=== PATIENT | female | born 1970 | race Caucasian/White ===

== ENCOUNTER → 2017-03-02 | Outpatient (CLI) | payer BC, SELFPAY | PROVIDERS: Visit Provider Obstetrics & Gynecology | DX: Z12.31 Encounter for screening mammogram for malignant neoplasm of breast (principal) | CPT/HCPCS: 77067; G0202 ==

== ENCOUNTER → 2018-03-14 16:01 | Outpatient (CLI) | payer BC, SELFPAY ==
--- NOTE | 2018-03-14 16:05 | MM_ITS ---
MM Dig SC mamm implant BI CAD ORDERING PHYSICIAN : Carl Lugo PATIENT AGE: 47 years GENDER: Female COMPARISON: Previous mammogram 03/02/2017 & August 2015 post studies with with implants.. INDICATION: Screening mammogram. no hormones./IUD. Bilateral breast implants Family history. Maternal grandmother with breast cancer TECHNIQUE: María technique utilized. CC & MLO images were obtained of the breast tissue overlying implant, as well as a second set of images including the breast implant. Mammography is inherently limited due to the implants is a could obscure areas of breast R2 CAD reviewed. . FINDINGS: . Moderate breast tissue overlies grossly intact appearing implants bilaterally. No significant new areas of concern. In either breast. No new findings. Bilateral follow-up in one recommended. . IMPRESSION: Stable bilateral mammogram. No new areas of concern. Bilateral breast implants again noted with stable appearance to the overlying breast tissue. Follow-up in one year recommended BI-RADS Category: 1 Negative RECOMMENDED FOLLOW-UP: 1YR 1 YEAR FOLLOW-UP (A letter has been sent to the patient regarding results of the study.)
== END ==
PROVIDERS: PCP Family Medicine; Visit Provider Obstetrics & Gynecology
DX: Z12.31 Encounter for screening mammogram for malignant neoplasm of breast (principal)
CPT/HCPCS: 77067

== ENCOUNTER → 2018-06-27 13:49 | Outpatient (POV) | payer BC, SELFPAY | PROVIDERS: Visit Provider Dermatology | DX: Z00.00 Encounter for general adult medical examination without abnormal findings (principal) ==

== ENCOUNTER → 2019-04-12 13:01 | Outpatient (CLI) | payer BC, SELFPAY ==
--- NOTE | 2019-04-12 13:12 | XR_ITS ---
PROCEDURE: XR WRIST RT MIN 3V CLINICAL INDICATION: RT WRIST PAIN COMPARISON: No exams were available for comparison FINDINGS: No fracture, dislocation, lytic change, or blastic change evident. No significant degenerative change IMPRESSION: Negative right wrist Dictated by: Elie Blevins MD 04/12/2019 15:25 Electronically signed by Elie Blevins MD in [place] 04/12/2019 15:25
== END ==
PROVIDERS: PCP Nurse Practitioner Family; Visit Provider Nurse Practitioner Family
DX: M25.531 Pain in right wrist (principal)
CPT/HCPCS: 73110

== ENCOUNTER → 2019-04-25 15:45 | Outpatient (CLI) | payer BC, SELFPAY ==
--- NOTE | 2019-04-25 15:49 | MM_ITS ---
PROCEDURE: MM DIG SC MAMM IMPLANT BI CAD CLINICAL INDICATION: SCREENING There is a history of breast cancer in the patient's maternal grandmother. Patient has bilateral breast implants. COMPARISON: [facility] DIG MAMM-SCREEN IMPLANT from 08/29/2015 [facility] DIG MAMM-SCREEN IMPLANT W/CAD from 03/02/2017 [facility] MM Dig SC mamm implant BI CAD from 03/14/2018 TECHNIQUE: Standard CC and MLO images and 3D Tomosynthesis was obtained. R2 CAD reviewed. Additional Emile views were performed as well. FINDINGS: Moderate heterogenic fibroglandular densities are seen in the [place] breast tissue surrounding the breast implants. Both implants appear intact with no evidence of leakage. Joseph images were reviewed showing no suspicious abnormality of the [place] breast tissue. Or there are no suspicious microcalcifications. There are couple of benign-appearing microcalcifications just deep to the nipple left breast. IMPRESSION: Stable exam with no suspicious lesions seen BI-RAD Category: 2 Benign Finding(s) FOLLOW-UP: 1YR 1 Year Follow-up (A letter has been sent to the patient regarding results of the study.) Dictated by: Dr. Prabhakar Quigley MD 04/26/2019 08:[address] Prabhakar Quigley MD in [place] 04/26/2019 08:59
== END ==
PROVIDERS: PCP Nurse Practitioner Family; Visit Provider Student in an Organized Health Care Education/Training Program
DX: Z12.31 Encounter for screening mammogram for malignant neoplasm of breast (principal)
CPT/HCPCS: 77063; 77067

== ENCOUNTER → 2020-02-19 14:20 | Outpatient (POV) | payer BC, SELFPAY | PROVIDERS: Visit Provider Dermatology | DX: Z00.00 Encounter for general adult medical examination without abnormal findings (principal) ==

== ENCOUNTER → 2020-04-10 17:49 | Outpatient (CLI) | payer BC, SELFPAY | PROVIDERS: PCP Physician Assistant; Visit Provider Physician Assistant | DX: Z20.822 Contact with and (suspected) exposure to COVID-19 (principal) | CPT/HCPCS: U0003 ==

== ENCOUNTER → 2020-09-25 07:57 | Outpatient (CLI) | payer BC, SELFPAY ==
--- NOTE | 2020-09-25 08:00 | MM_ITS ---
PROCEDURE: MM DIG MAMM DX BI IMPLANT CAD Digital Breast Tomosynthesis Included CLINICAL INDICATION: SCREENING COMPARISON: MG DMSI DIG MAMM-SCREEN IMPLANT W/CAD from 03/02/2017 MG [facility] MM Dig SC mamm implant BI CAD from 03/14/2018 MG MM DIG SC MAMM IMPLANT BI CAD from 04/25/2019 TECHNIQUE: Standard CC and MLO, implant displaced images and 3D Tomosynthesis was obtained. R2 CAD reviewed. FINDINGS: The breasts are heterogeneously dense, may obscure small masses. Bilateral breast implants are noted. No dominant mass lesion, suspicious calcification or architectural distortion is noted. Benign appearing calcifications in the left breast. IMPRESSION: Benign findings. BI-RAD Category: 2 Benign Finding FOLLOW-UP: 1 YR 1 Year Follow-up (A letter has been sent to the patient regarding results of the study.) Dictated by: May Holt 09/26/2020 08:59 May Holt in [place] 09/26/2020 08:59
== END ==
PROVIDERS: PCP Physician Assistant; Visit Provider Obstetrics & Gynecology
DX: Z12.31 Encounter for screening mammogram for malignant neoplasm of breast (principal); Z98.82 Breast implant status
CPT/HCPCS: 77062; 77063; 77066; 77067; G0279

== ENCOUNTER → 2020-12-16 08:24 | Outpatient (CLI) | payer BC, SELFPAY | PROVIDERS: Visit Provider Nurse Practitioner | DX: Z20.822 Contact with and (suspected) exposure to COVID-19 (principal) | CPT/HCPCS: C9803; U0003; U0005 ==

== ENCOUNTER → 2021-03-03 13:37 | Outpatient (CLI) | payer BC, SELFPAY | PROVIDERS: PCP Family Medicine; Visit Provider Nurse Practitioner | DX: U07.1 COVID-19 (principal) | CPT/HCPCS: C9803; U0003; U0005 ==

== ENCOUNTER → 2021-08-25 09:57 | Outpatient (POV) | payer BC, SELFPAY | PROVIDERS: Visit Provider Dermatology | DX: Z00.00 Encounter for general adult medical examination without abnormal findings (principal) ==

== ENCOUNTER → 2021-10-14 15:35 | Outpatient (CLI) | payer BC, SELFPAY ==
--- NOTE | 2021-10-14 15:40 | MM_ITS ---
PROCEDURE INFORMATION: Exam: MG Bilateral Screening 3D Mammography Exam date and time: 10/14/2021 3:47 PM Age: 51 years old Clinical indication: Screening examination TECHNIQUE: Imaging protocol: Bilateral Screening tomosynthesis and 2D mammography including computer-aided detection (CAD) when performed. COMPARISON: 1. MG MM DIG MAMM DX BI IMPLANT CAD 09/25/2020 8:03 AM 2. MG MM DIG SC MAMM IMPLANT BI CAD 04/25/2019 4:04 PM FINDINGS: MAMMOGRAPHY: Breast composition: The breasts are heterogeneously dense, which may obscure small masses. Mass: None. Architectural distortion: None. Calcifications: No suspicious calcifications. Asymmetric density: None. Skin thickening: None. Axillary adenopathy: None. Implants: Subpectoral saline breast implants are present. IMPRESSION: No mammographic evidence of malignancy. Annual screening is recommended unless otherwise clinically indicated. ASSESSMENT: BI-RADS Category 1: Negative
== END ==
PROVIDERS: PCP Family Medicine; Visit Provider Family Medicine
DX: Z12.31 Encounter for screening mammogram for malignant neoplasm of breast (principal)
CPT/HCPCS: 77063; 77067

== ENCOUNTER 2022-02-15 10:51 | Emergency (ER) | payer BC, SELFPAY ==
--- NOTE | 2022-02-15 13:03 | EXP.UTC ---
Discharge Plan Disposition Patient Disposition: Home, Self-Care Condition: Good Prescriptions Prescriptions: New azithromycin [Zithromax] 250 mg tablet 250 mg PO UD DOSE PK Qty: 6 0RF Rx Instructions: Take two (2) tablets today, then one (1) tablet days #2 thru #5 benzonatate [benzonatate] 100 mg capsule 100 mg PO TIDP PRN (Reason: Cough) Qty: 30 0RF methylprednisolone 4 mg Tablets,Dose Pack 4 mg PO DIRECTED Qty: 21 0RF Referrals Follow up/Referrals: Manuelito Barroso MD [Primary Care Provider] - See instructions Activity Restrictions/Add. Instructions Additional Instructions/Restrictions: Drink plenty of fluids. Take tylenol or ibuprofen for pain or fever. Take the medications as directed. Follow up with your regular doctor. GO TO THE ER FOR ANY WORSENING SYMPTOMS Clinical Impressions Clinical Impression: Acute viral syndrome Discharge ED Provider[place] Yuriy Farr [facility] General Stated complaint: upper resp,headache Time Seen by Provider: 02/15/22 13:03 History of Present Illness Provider Complaint: She states that for the past 1 day she has had fever, chills, sore throat, and malaise. Related Data Previous Rx's Medication Instructions Recorded azithromycin 250 mg tablet 250 mg PO UD DOSE PK #6 tabs 02/15/22 (Zithromax) benzonatate 100 mg capsule 100 mg PO TIDP PRN Cough #30 caps 02/15/22 methylprednisolone 4 mg tablets in 4 mg PO DIRECTED #21 tabs 02/15/22 a dose pack Allergies Allergy/AdvReac Type Severity Reaction Status Date / Time Sulfa (Sulfonamide Allergy Verified 02/15/22 13:39 Antibiotics) [facility] Disclaimer: The information contained in this section may have been updated after the patient was seen, as this information can be updated by other users. Social History Smoking Status: Never smoker alcohol intake: never current occupational status: employed Travel in the last 8 weeks: None ROS Obtained: Yes All systems reviewed & no additional complaints except as documented Constitutional Constitutional: Reports chills and Reports fever(s) Eyes Eyes: Denies eye discharge ENT Ears, Nose, Mouth, and Throat: Reports as per HPI Cardiovascular Cardiovascular: Denies chest pain Respiratory Respiratory: Denies chest congestion and Reports cough Gastrointestinal Gastrointestingal: Reports nausea; Denies abdominal pain, constipation, cramping, diarrhea or vomiting Musculoskeletal Musculoskeletal: Denies arthralgias Integumentary/Breasts Skin/Breast: Denies rash Neurologic Neurologic: Denies paresthesias Physical Exam General General appearance: alert and in no apparent distress Head Head exam: atraumatic, normocephalic and normal inspection Eye Eye exam: Present normal appearance, PERRL and EOMI ENT ENT exam: Present mucous membranes moist and normal external ear exam Expanded ENT Exam TM/Canal exam: Bilateral TM: erythema and bulging Nose exam: Absent sinus tenderness Mouth exam: Present normal external inspection; Absent drooling Teeth exam: Present normal inspection Throat exam: Present tonsillar erythema, tonsillomegaly and tonsillar exudate Neck Neck exam: Present normal inspection, full ROM and trachea midline; Absent tenderness, meningismus or lymphadenopathy Chest Chest inspection: Present normal inspection and symmetric chest wall rise; Absent tenderness Respiratory Respiratory exam: Present normal lung sounds bilaterally; Absent respiratory distress, wheezes or stridor Cardiovascular Cardiovascular exam: Present regular rate and normal rhythm; Absent systolic murmur or diastolic murmur Abdominal Exam Abdominal exam: Present soft and normal bowel sounds; Absent distention, tenderness, guarding, rebound or rigidity Extremities Exam Extremities exam: Present normal inspection and normal capillary refill; Absent calf tenderness Back Exam Back exam: Present normal i
[2022-02-15 13:12] LABS: Coronavirus 19, PCR Not Detected (NotDetected); Influenza A, PCR Not Detected (NotDetected); Influenza B, PCR Not Detected (NotDetected)
[2022-02-15 13:18] LABS: UTC Strep Screen (Rapid) Negative (Negative)
[2022-02-15 13:34] VITALS: BP 166/102; PULSE 60; RESP 16; TEMP 36.9; O2SAT 97; BMI 26.5
[2022-02-15 13:47] VITALS: BP 166/102; PULSE 60; RESP 16; TEMP 36.9
== END 2022-02-15 13:50 | disposition home or self-care (01) ==
PROVIDERS: Emergency Provider Nurse Practitioner Family; PCP Family Medicine
DX: R51.9 Headache, unspecified (principal); B34.9 Viral infection, unspecified
CPT/HCPCS: 87880; 99212; C9803; G0463; U0003; U0005

== ENCOUNTER → 2022-08-17 08:42 | Outpatient (POV) | payer BC, SELFPAY | PROVIDERS: Visit Provider Dermatology | DX: Z00.00 Encounter for general adult medical examination without abnormal findings (principal) ==

== ENCOUNTER → 2022-09-08 14:37 | Outpatient (CLI) | payer BC, SELFPAY ==
--- NOTE | 2022-09-08 14:49 | US_ITS ---
PROCEDURE INFORMATION: Exam: US Left Non-Vascular Joint or Other Extremity Structure Exam date and time: 09/08/2022 3:05 PM Age: 52 years old Clinical indication: Lymphadenopathy is localized; Arm, upper; Left; Additional info: Axillary lymphadenopathy TECHNIQUE: Imaging protocol: Left US joint or other nonvascular extremity structure or structures. Real-time ultrasound with image documentation. Limited study. Exam focused on the upper extremity in the region of clinical interest. Total images: 14 COMPARISON: No relevant prior studies available. FINDINGS: Soft tissues: Unremarkable. No loculated collections. Lymph nodes: Multiple left axillary lymph nodes are present measuring up to 1.3 cm. No other areas of lymphadenopathy or masses. IMPRESSION: 1. Multiple left axillary lymph nodes are present measuring up to 1.3 cm. 2. No other areas of lymphadenopathy or masses.
== END ==
PROVIDERS: PCP Family Medicine; Visit Provider Physician Assistant
DX: R59.0 Localized enlarged lymph nodes (principal)
CPT/HCPCS: 76882

== ENCOUNTER → 2022-12-06 15:51 | Outpatient (CLI) | payer BC, SELFPAY ==
--- NOTE | 2022-12-06 15:55 | MM_ITS ---
PROCEDURE INFORMATION: Exam: MG Bilateral Screening 3D Mammography Exam date and time: 12/06/2022 3:47 PM Age: 52 years old Clinical indication: Screening mammogram. Family history of breast cancer in grandmother TECHNIQUE: Imaging protocol: Bilateral Screening tomosynthesis and 2D mammography including computer-aided detection (CAD) when performed. COMPARISON: 1. MG MM DIG SC MAMM IMPLANT BI CAD 10/14/2021 3:47 PM 2. MG MM DIG MAMM DX BI IMPLANT CAD 09/25/2020 8:03 AM 3. MG MM DIG SC MAMM IMPLANT BI CAD 04/25/2019 4:04 PM 4. MG [facility] MM Dig SC mamm implant BI CAD 03/14/2018 4:21 PM FINDINGS: MAMMOGRAPHY: Breast composition: The breast is heterogeneously dense, which may obscure small masses. Mass: None. Architectural distortion: No new or suspicious architectural distortion. Calcifications: No new or suspicious calcifications are present Asymmetric density: No new or suspicious asymmetric density is present Skin thickening: None. Axillary adenopathy: None. Implants: Subpectoral saline augmentation implants are present. IMPRESSION: No mammographic evidence of malignancy. Recommend annual screening mammography unless otherwise clinically indicated. ASSESSMENT: BI-RADS category 2: Benign
== END ==
PROVIDERS: PCP Family Medicine; Visit Provider Family Medicine
DX: Z12.31 Encounter for screening mammogram for malignant neoplasm of breast (principal)
CPT/HCPCS: 77063; 77067

== ENCOUNTER 2023-02-16 07:59 | Emergency (ER) | payer BC, SELFPAY ==
[2023-02-16 08:10] VITALS: BP 148/90; PULSE 88; RESP 19; TEMP 37.6; O2SAT 98; BMI 24.7
[2023-02-16 08:35] LABS: UTC Influenza A Antigen Negative (Negative)
[2023-02-16 08:36] LABS: UTC Influenza B Antigen Negative (Negative)
--- NOTE | 2023-02-16 08:41 | EXP.UTC ---
Discharge Plan Disposition Patient Disposition: Home, Self-Care Condition: Good Prescriptions Prescriptions: New prednisone [prednisone] 20 mg tablet 20 mg PO BID Qty: 10 0RF No Action propranolol 20 mg tablet 20 mg PO BID Patient Comments: TAKE ONE TABLET BY MOUTH TWICE DAILY Referrals Follow up/Referrals: Manuelito Barroso MD [Primary Care Provider] - See instructions Activity Restrictions/Add. Instructions Additional Instructions/Restrictions: No sign of a bacterial infection. Likely viral. Viruses can take 7-14 days to run their course. Nasal saline and bulb syringe or nose Trupti to remove nasal drainage to help with nasal congestion. Hard to eat, drink, sleep with nasal congestion so important to keep this cleaned out. Monitor temp. Tylenol or Motrin as needed for pain or fever Encourage fluids, water, Gatorade, Powerade, Pedialyte if infant/toddler/child Warm salt water gargles Warm fluids Sore throat lozenges Sleep elevated Humidifier/vaporizer Follow-up immediately for new or worsening symptoms or no noticeable improvement over the next 48-72 hours. Clinical Impressions Clinical Impression: Upper respiratory disease Instructions Patient Instructions: DI for Viral Upper Respiratory Infection -- Adult Discharge ED Provider: Tayo ([facility] [place] HPI General Stated complaint: cough,sore throat,headache Mode of Arrival: Ambulatory Source of Information: Patient Limitations: No Limitations Time Seen by Provider: 02/16/23 08:41 Description of Symptoms (Recalled from Triage Doc. by RN): cough, loss of voice, fever, chills, body aches, and congestion HEENT Symptoms (Recalled from RN notes): Yes Resp Symptoms (Recalled from RN notes): No Skin Symptoms (Recalled from RN notes): No MS Symptoms (Recalled from RN notes): No Functional Status (Recalled from RN notes): n/a History of Present Illness Provider Complaint: 52 yr old female presents for cough, loss of voice, fever, chills, body aches, and congestion Related Data Home Medications Medication Instructions Recorded Confirmed propranolol 20 mg tablet 20 mg PO BID 02/16/23 02/16/23 Previous Rx's Medication Instructions Recorded prednisone 20 mg tablet 20 mg PO BID #10 tabs 02/16/23 Allergies Allergy/AdvReac Type Severity Reaction Status Date / Time Sulfa (Sulfonamide Allergy Verified 02/16/23 08:20 Antibiotics) Worker's Comp Is this a Worker's Comp case?: No [facility] Disclaimer: The information contained in this section may have been updated after the patient was seen, as this information can be updated by other users. Social History , [employer]LL TABLE [employer]) Smoking Status: Never smoker alcohol intake: never current occupational status: employed Travel in the last 8 weeks: None ROS Obtained: Yes All systems reviewed & no additional complaints except as documented Constitutional Constitutional: Reports system reviewed and no additional complaints, except as documented, Reports as per HPI and Reports headache(s) Eyes Eyes: Reports system reviewed and no additional complaints, except as documented ENT Ears, Nose, Mouth, and Throat: Reports system reviewed and no additional complaints, except as documented, Reports as per HPI, Reports headache(s), Reports hoarseness, Reports nasal congestion, Reports nasal discharge, Reports post nasal drip, Reports sinus pain, Reports sinus pressure, Reports sore throat and Reports throat swelling Cardiovascular Cardiovascular: Reports system reviewed and no additional complaints, except as documented Respiratory Respiratory: Reports system reviewed and no additional complaints, except as documented, Reports as per HPI and Reports cough Gastrointestinal Gastrointestingal: Reports system reviewed and no additional complaints, except as documented Neurologic Neurologic: Reports system reviewed and no additional complaints, exce
[2023-02-16 08:53] VITALS: BP 148/90; PULSE 88; RESP 18; TEMP 37.6; O2SAT 98
[2023-02-16 08:53] LABS: Adenovirus,PCR Not Detected (NotDetected); Coronavirus 229E Not Detected (NotDetected); Coronavirus NL63 Not Detected (NotDetected); Coronavirus OC43 Not Detected (NotDetected); Coronovirus HKU1,PCR Not Detected (NotDetected); Human Metapneumovirus Not Detected (NotDetected); Influenza A, PCR Not Detected (NotDetected); Influenza AH1, 2009 Not Detected (NotDetected); Influenza AH1, PCR Not Detected (NotDetected); Influenza AH3,PCR Not Detected (NotDetected); Influenza B, PCR Not Detected (NotDetected); Parainfluenza 1, PCR Not Detected (NotDetected); Parainfluenza 2, PCR Not Detected (NotDetected); Parainfluenza 3, PCR Not Detected (NotDetected); Parainfluenza 4, PCR Not Detected (NotDetected); Respiratory Syncytial Virus Not Detected (NotDetected); Rhinovirus/Enterovirus Not Detected (NotDetected)
[2023-02-16 11:10] LABS: Coronavirus 19, PCR Detected (NotDetected)
== END 2023-02-16 08:53 | disposition home or self-care (01) ==
PROVIDERS: Emergency Provider Nurse Practitioner Family; PCP Family Medicine
DX: U07.1 COVID-19 (principal); R51.9 Headache, unspecified; R07.0 Pain in throat; R05.9 Cough, unspecified; R50.9 Fever, unspecified; R09.81 Nasal congestion; M79.18 Myalgia, other site; J04.0 Acute laryngitis
CPT/HCPCS: 87632; 87635; 87804; 99212; 99214; G0463

== ENCOUNTER 2023-07-11 15:47 | Emergency (ER) | payer BC, SELFPAY ==
[2023-07-11 16:10] VITALS: BP 176/82; PULSE 64; RESP 20; TEMP 36.9; O2SAT 99; BMI 26.8
--- NOTE | 2023-07-11 16:39 | EXP.UTC ---
Discharge Plan Disposition Patient Disposition: Home, Self-Care Condition: Good Prescriptions Prescriptions: New amoxicillin-pot clavulanate 875-125 mg Tablet 1 tab PO Q12H Qty: 20 0RF methylprednisolone [Medrol (Taco)] 4 mg tablets,dose pack See Rx Instructions .Route .COMPLEX 6 Days Qty: 21 0RF Rx Instructions: taper pack; guaifenesin [Mucinex] 600 mg tablet extended release 12hr 1,200 mg PO BID PRN (Reason: cough) Qty: 20 0RF No Action propranolol 20 mg tablet 20 mg PO BID Patient Comments: TAKE ONE TABLET BY MOUTH TWICE DAILY Nurtec ODT 75 mg tablet,disintegrating 75 mg PO DAILYP PRN (Reason: Migraine Headache) Patient Comments: DISSOLVE ONE TABLET BY MOUTH ONCE DAILY NEEDED FOR migraine Referrals Follow up/Referrals: Manuelito Barroso MD [Primary Care Provider] - See instructions Activity Restrictions/Add. Instructions Additional Instructions/Restrictions: Your blood pressure has been elevated the last few times you have been seen here, make sure to follow up with your Family doctor for recheck Take medication as prescribed You can take a Probiotic and eat some Yogurt to help prevent GI upset from medication *Monitor Temp, Over the counter Motrin or Tylenol as directed/as needed Tylenol every 4 hours and Motrin every 6 hours (as long as your family doctor has told you that you can take it) for fever or pain. and straight to ER if unable to lower temp less than 101.0 after medication given *Warm salt water gargles may help to soothe the throat *Throat Lozenges? *Warm fluids like tea with honey may help to soothe the throat? *Sleep elevated *Humidifier/Vaporizer Follow up IMMEDIATELY for new or worsening symptoms or no Noticeable improvement over the next 48-72 hours. 911 for difficulty breathing or swallowing Clinical Impressions Clinical Impression: Sinusitis Instructions Patient Instructions: DI for Sinusitis, Sinusitis Discharge ED Provider: Sylvie Casanova [facility] General Stated complaint: SOA, cough Mode of Arrival: Ambulatory Source of Information: Patient Limitations: No Limitations Time Seen by Provider: 07/11/23 16:39 Description of Symptoms (Recalled from Triage Doc. by RN): PATIENT C/O COUGH AND SINUS CONGESTION THAT STARTED 2.5 WEEKS AGO HEENT Symptoms (Recalled from RN notes): Yes Resp Symptoms (Recalled from RN notes): Yes Skin Symptoms (Recalled from RN notes): No MS Symptoms (Recalled from RN notes): No Functional Status (Recalled from RN notes): WNL History of Present Illness Provider Complaint: Patient states that she has been having sinus pain and pressure with drainage in the back of her throat and feeling like her throat is scratchy for about 2.5wks States that she seen her PCP and was given a zpack but hasnt helped much so today she came in to get checked Related Data Home Medications Medication Instructions Recorded Confirmed propranolol 20 mg tablet 20 mg PO BID 02/16/23 07/11/23 rimegepant 75 mg disintegrating 75 mg PO DAILYP PRN Migraine 07/11/23 07/11/23 tablet (Nurtec ODT) Headache Previous Rx's Medication Instructions Recorded amoxicillin 875 mg-potassium 1 tab PO Q12H #20 tabs 07/11/23 clavulanate 125 mg tablet guaifenesin 600 mg tablet, 1,200 mg (2 x 600 mg) PO BID PRN 07/11/23 extended release 12 hr (Mucinex) cough #20 tabs methylprednisolone 4 mg tablets in See Rx Instructions .Route 07/11/23 a dose pack (Medrol (Taco)) .COMPLEX 6 days #21 tabs Allergies Allergy/AdvReac Type Severity Reaction Status Date / Time Sulfa (Sulfonamide Allergy Verified 02/16/23 08:20 Antibiotics) Worker's Comp Is this a Worker's Comp case?: No [facility] Disclaimer: The information contained in this section may have been updated after the patient was seen, as this information can be updated by other users. Medical History (Updated 07/11/23 @ 16:51 by Sylvie Casanova APRN) Migraine Surgical History (Updated 07/11/23 @ 16:36 by Yanira Almazan RN) History of hysterectomy Social History , TOMASZ) Smoking Status: Never smoker alcohol intake: never current occupational status: employed Travel in the last 8 weeks: None ROS Obtained: Yes All systems reviewed & no additional complaints except as documented and Yes Systems reviewed as appropriate & no additional complaints except as documented Constitutional Constitutional: Reports system reviewed and no additional complaints, except as documented and Reports as per HPI ENT Ears, Nose, Mouth, and Throat: Reports system reviewed and no additional complaints, except as documented, Reports as per HPI, Reports sinus pain, Reports sinus pressure and Reports sore throat (scratchy throat) Respiratory Respiratory: Reports system reviewed and no additional complaints, except as documented, Reports as per HPI, Denies shortness of breath, Reports chest congestion and Reports cough Physical Exam General General appearance: alert and in no apparent distress ENT ENT exam: Present mucous membranes moist Expanded ENT Exam Nose exam: Present sinus tenderness Throat exam: Present other (Pharyngeal erythema noted with PND) Respiratory Respiratory exam: Present normal lung sounds bilaterally; Absent respiratory distress or wheezes Cardiovascular Cardiovascular exam: Present regular rate, normal rhythm and normal heart sounds Neurological Exam Neurological exam: Present alert, oriented X3 and normal gait Medical Decision Making Miguel Inquiry Pt receiving controlled substance: No Miguel was queried for this patient: No Vital Signs: 07/11/23 16:10 Temperature 98.5 F Temperature Source Oral Pulse Rate [Right Brachial] 64 Respiratory Rate 20 Blood Pressure [Right Arm] 176/82 H Blood Pressure Mean [Right Arm] 113 Blood Pressure Source [Right Arm] Automatic Cuff Blood Pressure Position [Right Arm] Sitting 02 Sat by Pulse Oximetry 99 Oxygen Delivery Method Room Air
[2023-07-11 16:55] VITALS: BP 176/82; PULSE 64; RESP 20; TEMP 36.9; O2SAT 99
== END 2023-07-11 16:57 | disposition home or self-care (01) ==
PROVIDERS: Emergency Provider Nurse Practitioner; PCP Family Medicine
DX: J01.90 Acute sinusitis, unspecified (principal); R09.82 Postnasal drip; R07.0 Pain in throat; R05.9 Cough, unspecified
CPT/HCPCS: 99212; 99214; G0463

== ENCOUNTER 2023-09-27 14:02 | Outpatient (CLI) | payer BC, SELFPAY ==
--- NOTE | 2023-09-27 14:24 | US_ITS ---
FINAL REPORT TECHNIQUE: Limited sonographic images of the left axillary region was obtained. CLINICAL HISTORY: .lymphadenopathy COMPARISON: 09/08/2022 FINDINGS: There are multiple left axillary nodes, most of which are normal in size. One appears mildly enlarged measuring 23 x 9 mm, unchanged. This is predominantly fatty replaced compatible with benign lymph node. IMPRESSION: Normal appearing lymph nodes, stable from prior exam. Reviewed, Interpreted and Dictated by Servando Dumont MD Transcribed by Melanie Santoro Authenticated and [facility]
== END 2023-09-27 23:59 | disposition home or self-care (01) ==
LOC: RAD 14:03
PROVIDERS: PCP Family Medicine; Visit Provider Physician Assistant
DX: R59.0 Localized enlarged lymph nodes (principal)
CPT/HCPCS: 76882

== ENCOUNTER 2024-01-11 15:39 | Outpatient (CLI) | payer BC, SELFPAY ==
--- NOTE | 2024-01-11 15:42 | MM_ITS ---
PROCEDURE INFORMATION: Exam: MG Bilateral Screening 3D Mammography Exam date and time: 01/11/2024 3:34 PM Age: 53 years old Clinical indication: Screening examination TECHNIQUE: Imaging protocol: Bilateral Screening tomosynthesis and 2D mammography including computer-aided detection (CAD) when performed. COMPARISON: 1. MG MM DIG SC MAMM IMPLANT BI CAD 12/06/2022 3:47 PM 2. MG MM DIG SC MAMM IMPLANT BI CAD 10/14/2021 3:47 PM FINDINGS: MAMMOGRAPHY: Breast composition: The breasts are heterogeneously dense, which may obscure small masses. Mass: None. Architectural distortion: None. Calcifications: No suspicious calcifications. Asymmetric density: None. Skin thickening: None. Axillary adenopathy: None. Implants: Post pectoral saline breast implants are present. IMPRESSION: No mammographic evidence of malignancy. Annual screening is recommended unless otherwise clinically indicated. ASSESSMENT: BI-RADS Category 1: Negative.
== END 2024-01-11 23:59 | disposition home or self-care (01) ==
LOC: RAD 15:39
PROVIDERS: PCP Family Medicine; Visit Provider Family Medicine
DX: Z12.31 Encounter for screening mammogram for malignant neoplasm of breast (principal)
CPT/HCPCS: 77063; 77067

== ENCOUNTER 2024-05-12 08:28 | Outpatient (CLI) | payer BC, SELFPAY | END 2024-05-12 23:59 | disposition home or self-care (01) | LOC: LAB.DROPOF 05-14 16:43 | PROVIDERS: PCP Nurse Practitioner Family; Visit Provider Nurse Practitioner Family | DX: N39.0 Urinary tract infection, site not specified (principal) | CPT/HCPCS: 87086; 87088; 87186 ==